=== PATIENT | female | born 1990 | race Caucasian/White ===

== ENCOUNTER 2019-08-01 19:22 | Emergency (ER) | payer OTHER, SELFPAY ==
[2019-08-01 19:30] VITALS: BP 142/92; PULSE 129; RESP 22; TEMP 38.2; O2SAT 100
--- NOTE | 2019-08-01 19:32 | ED.GENADULT ---
HPI - General Adult General Chief complaint: Urogenital-Female Stated complaint: cloudy Urine Time Seen by Provider: 08/01/19 19:41 Source: patient and RN notes reviewed Mode of arrival: ambulatory Limitations: no limitations History of Present Illness HPI narrative: This is a 28 years old female presents to the office for an evaluation of possible UTI. Onset 4-5days ago. Symptoms include back pain, urinary pain and fever. She took Tylenol for pain/fever prior to arrival. Admits to history of UTI many years ago with similar symptoms. Related Data Home Medications Medication Instructions Recorded Confirmed fluticasone propionate [Flonase 2 spray INTRANASAL DAILY 08/01/19 08/01/19 Allergy Relief] loratadine [Claritin] 10 mg PO DAILY 08/01/19 08/01/19 Allergies Allergy/AdvReac Type Severity Reaction Status Date / Time amoxicillin AdvReac Other Verified 08/01/19 19:43 Review of Systems Review of Systems: Narrative: CONSTITUTIONAL: Reports fever today ENT:Denies congestion CARDIOVASCULAR: Denies chest pain RESPIRATORY: Denies dyspnea, cough GASTROINTESTINAL: Denies abdominal pain, nausea, vomiting, diarrhea. GENITOURINARY: Reports urinary pain, and lower abdominal discomfort SKIN: Denies rash MUSCULOSKELETAL: Reports lower back pain NEUROLOGIC: Denies lightheaded PMFSH Comments At time of signature, I agree with nursing past medical, surgical, social and family history. There is no relevant family history pertinent to the presenting complaint. Exam Narrative: Exam Narrative: GENERAL: This is a well-nourished, well-developed patient, in no apparent distress. CARDIOVASCULAR: Regular rate and rhythm without murmurs, gallops, or rubs. RESPIRATORY: Clear to auscultation. Breath sounds equal bilaterally. No wheezes, rales, or rhonchi. GASTROINTESTINAL: Abdomen soft, suprapubic tenderness with palpation, nondistended. Bowel sounds are active. No hepato-splenomegaly, or palpable masses. No guarding. SKIN: warm, intact with no suspicious lesions or rash, good texture and turgor. NEURO: awake, alert, and oriented to person, place and time. There were no obvious focal neurologic abnormalities. Steady gait BACK: No CVS tenderness. Apoorva Coma Scale Eye Opening: Spontaneous 4 Onward Coma Scale Motor: Obeys Commands 6 Onward Coma Scale Verbal: Oriented 5 Course Vital Signs Vital signs: Vital Signs Temperature 100.8 F H 08/01/19 19:30 Pulse Rate 129 H 08/01/19 19:30 Respiratory Rate 22 H 08/01/19 19:30 Blood Pressure 142/92 H 08/01/19 19:30 Pulse Oximetry 100 08/01/19 19:30 Temperature 100.8 F H 08/01/19 19:30 Pulse Rate 129 H 08/01/19 19:30 Respiratory Rate 22 H 08/01/19 19:30 Blood Pressure 142/92 H 08/01/19 19:30 Pulse Oximetry 100 08/01/19 19:30 Medical Decision Making MDM Narrative Medical decision making narrative: The patient has been informed that they may have pre-hypertension or Hypertension based on a BP reading in the clinic. It is recommended that the patient call the primary care provider listed on their discharge instructions or a physician of their choice as soon as possible (within 1-2week) to arrange follow up for further evaluation of possible pre-hypertension or hypertension. Discharge instructions reviewed with patient, as well as provided in writing per nursing staff. The instructions also include specific and strict return/GO TO THE ER as well as f/u information. All questions have been answered, and the patient deny any further questions with discharge and discharge plan. Differential Diagnosis Differential Diagnosis: Cystitis, Nephrolithiasis, bacterial vaginosis, Nephritis, candidiasis, vaginitis, pyelonephritis Vital Signs Vital Signs: Vital Signs Temperature 100.8 F H 08/01/19 19:30 Pulse Rate 129 H 08/01/19 19:30 Respiratory Rate 22 H 08/01/19 19:30 Blood Pressure 142/92 H 08/01/19 19:30 Pulse Oximetry 100 08/01/19 19:30 Temp
== END 2019-08-01 19:49 | disposition home or self-care (01) ==
PROVIDERS: Emergency Provider Nurse Practitioner; PCP Family Medicine
DX: N30.01 Acute cystitis with hematuria (principal)
CPT/HCPCS: 81003; 87077; 87086; 87088; 87186; 99213; G0463

== ENCOUNTER 2020-10-22 16:40 | Emergency (ER) | payer OTHER, SELFPAY ==
--- NOTE | ~2020-10-22 | XR_ITS ---
EXAMINATION: XR ankle LT min 3V EXAM DATE: 10/22/2020 17:16 INDICATION: Stepdown wrong, left ankle pain laterally. Initial encounter. TECHNIQUE: Left ankle frontal, lateral and oblique projections obtained and reviewed. There is no pr ior study for comparison. FINDINGS: The left ankle mortise appears intact. Possible tiny sliver-like lateral malleolar avulsio n injury at its tip, would be treated as ankle sprain. There is swelling overlying the ankle anterola terally. There is large chronic appearing medial talar dome osteochondral defect. IMPRESSION: 1. Possible tiny acute lateral malleolar avulsion fracture. 2. Large chronic talar dome osteochondral defect. 3. Lateral soft tissue swelling. Reviewed, dictated and finalized at location A.
[2020-10-22 16:44] VITALS: BP 135/78; PULSE 106; RESP 14; TEMP 36.9; O2SAT 99
--- NOTE | 2020-10-22 17:44 | ED.LOWEXIN ---
HPI - Extremity Injury (Lower) General Chief Complaint: Extremity Injury, Lower Stated Complaint: left ankle injury Source: patient Mode of arrival: ambulatory Limitations: no limitations History of Present Illness HPI Narrative: Patient is a 30-year-old female who presents complaining of left ankle pain. Patient reports injuring her ankle while zip lining this afternoon. Swelling noted to the left lateral ankle. Patient reports using an Garrett wrap with little relief. She denies other injuries. She denies significant medical history at this time. MD complaint: ankle injury Related Data Home Medications Medication Instructions Recorded Confirmed levonorgestrel-ethinyl estrad 1 tablet PO DAILY 10/22/20 10/22/20 [Lutera (28)] Allergies Allergy/AdvReac Type Severity Reaction Status Date / Time No Known Allergies Allergy Verified 10/22/20 17:03 Review of Systems Review of Systems: Narrative: CONSTITUTIONAL: Denies fever, chills, or sweats. EYES: Denies visual changes, redness, or discharge. ENT: Denies rhinorrhea, congestion, sore throat, or otalgia. CARDIOVASCULAR: Denies chest pain, palpitations, or edema. RESPIRATORY: Denies cough or dyspnea. GASTROINTESTINAL: Denies abdominal pain, nausea, vomiting, or diarrhea. GENITOURINARY: Denies dysuria or hematuria. SKIN: Denies rash or itching. MUSCULOSKELETAL: Left ankle pain and swelling NEUROLOGIC: Denies headache, numbness, dizziness, or weakness. PSYCHIATRIC: Denies anxiety or depression. [facility] Social History Social History (Updated 10/22/20 @ 17:46 by KADIE Kaminski) Smoking status: Never smoker Alcohol intake: current Alcohol use details: Occasional Substance use: never Living arrangements: with family Comments At the time of signature, I have reviewed and agree with nursing past medical, surgical, social, and family history unless otherwise noted. Please see nursing chart for further information. There is no relevant family history pertinent to the presenting complaint. Exam Narrative: Exam Narrative: GENERAL: Well-appearing, well-nourished, and in no acute distress. HEAD: Normocephalic, atraumatic. EYES: EOMI. No redness or drainage. Conjunctiva are normal. ENT: Mucous membranes pink and moist. CHEST: No respiratory distress. Clear to auscultation. HEART: Regular rate and rhythm. EXTREMITIES: Normal range of motion. Tenderness with palpation to left lateral ankle, edema noted. SKIN: Warm, dry, no rash. NEURO: No focal deficits. Alert and oriented x3. PSYCH: Normal affect. No signs of depression or anxiety. Course Vital Signs Vital signs: Vital Signs Temperature 36.9 C 10/22/20 16:44 Pulse Rate 106 H 10/22/20 16:44 Respiratory Rate 14 10/22/20 16:44 Blood Pressure 135/78 10/22/20 16:44 Pulse Oximetry 99 10/22/20 16:44 Temperature 36.9 C 10/22/20 16:44 Pulse Rate 106 H 10/22/20 16:44 Respiratory Rate 14 10/22/20 16:44 Blood Pressure 135/78 10/22/20 16:44 Pulse Oximetry 99 10/22/20 16:44 Reviewed-patient is informed that they may have pre-hypertension or hypertension based on a blood pressure reading. I recommend the patient call the primary care provider listed on their discharge instructions or a physician of their choice this week to arrange follow-up for further evaluation of possible pre-hypertension or hypertension. MDM - Extremity Injury (Lower) MDM Narrative Medical decision making narrative: Patient has small avulsion fracture noted to ankle per radiology report. Discussed with patient use of Garrett wrap and crutches. Patient agrees with plan of care. Patient given follow-up referral to Ortho at this time. Patient is stable for discharge home with outpatient follow-up as discussed. Differential Diagnosis Differential diagnosis: Likely ankle sprain and strain, ankle fracture and other (Sprain, strain, contusion) Imaging Data Radiologist's impression: ITS Impressions Ankle X-R
== END 2020-10-22 18:02 | disposition home or self-care (01) ==
PROVIDERS: Emergency Provider Nurse Practitioner
DX: S93.402A Sprain of unspecified ligament of left ankle, initial encounter (principal); S96.912A Strain of unspecified muscle and tendon at ankle and foot level, left foot, initial encounter; S82.892A Other fracture of left lower leg, initial encounter for closed fracture; X58.XXXA Exposure to other specified factors, initial encounter
CPT/HCPCS: 73610; 99214; G0463

== ENCOUNTER 2022-02-17 14:19 | Emergency (ER) | payer OTHER, SELFPAY ==
[2022-02-17 15:45] VITALS: BP 140/93; PULSE 102; RESP 16; TEMP 36.7; O2SAT 98
--- NOTE | 2022-02-17 17:23 | ED.FEMALEGU ---
HPI - Female Genitourinary General Chief complaint: Urogenital-Female Stated complaint: Urinary Problem Time Seen by Provider: 02/17/22 16:50 Source: patient, RN notes reviewed and old records reviewed Mode of arrival: ambulatory Limitations: no limitations History of Present Illness HPI Narrative: 31-year-old female who presents to [facility] with complaints of frequency of urination with burning, urgency, foul smelling urine, and low back pain which started yesterday. Patient reports that she has no vaginal discharge or any itching, denies any concern for STD's. Patient reports that she has not noted any fevers, suprapubic pain or any CVA tenderness. Patient has not taken any AZO for hr symptoms MD elicited complaint: UTI Pertinent past history: other (past UTI) Onset (ago): day(s) (1) Severity scale (1-10): 5 Related Data Home Medications Medication Instructions Recorded Confirmed levonorgestrel-ethinyl estradiol 1 tablet PO DAILY 10/22/20 02/17/22 0.1 mg-20 mcg tablet (Lutera (28)) Allergies Allergy/AdvReac Type Severity Reaction Status Date / Time No Known Allergies Allergy Verified 02/17/22 17:27 Review of Systems Review of Systems: CONSTITUTIONAL: Denies fever, chills, or sweats. CARDIOVASCULAR: Denies chest pain, palpitations, or edema. RESPIRATORY: Denies cough or dyspnea. GASTROINTESTINAL: Denies abdominal pain, nausea, vomiting, or diarrhea. GENITOURINARY: Reports dysuria, frequency, urgency. Denies flank pain or hematuria. SKIN: Denies rash or itching. MUSCULOSKELETAL: reports low back pain or myalgia. Denies CVA tenderness NEUROLOGIC: Denies headache All systems reviewed & are unremarkable except as noted in HPI and below [facility] Past Medical History Medical History (Updated 02/24/22 @ 09:37 by Marisela Cooley NP) COVID-19 Fracture of right elbow Moderate left ankle sprain Osteochondral defect of talus Surgical History Surgical History (Updated 02/24/22 @ 09:30 by Marisela Cooley NP) Previous section Social History Social History (Updated 02/24/22 @ 09:31 by Marisela Cooley NP) Smoking status: Never smoker Alcohol intake: current Alcohol use details: Occasional Substance use: never Living arrangements: with family Gender identity (if verbalized by the patient): Female Comments At time of signature, agree with nursing past medical, surgical, social and family history. There is no relevant family history pertinent to the presenting complaint Exam Narrative: GENERAL: Well-appearing, well-nourished, and in no acute distress. HEAD: Normocephalic, atraumatic. NECK: Supple.no lymphadenopathy CHEST: Clear to auscultation. No respiratory distress.SAO2 98% on room air HEART: Regular rate and rhythm. No murmur heard. Normal peripheral pulses. ABDOMEN: Soft, nontender, nondistended, normal active bowel sounds. No CVA tenderness urinary frequency. low back pain with urinary urgency, burning EXTREMITIES: Normal range of motion. No edema. SKIN: Warm, dry, no rash. NEURO: No focal deficits. Alert and oriented x3. Course Course Emergency Course: Patient is aware of diagnosis, understands and agrees to treatment plan.? Anticipatory guidance given.? Patient agrees to follow-up as directed and is aware of reasons to seek care at the emergency department. Portions of this record may have been created with voice recognition software Level of Care: Express Care Visit Vital Signs Vital signs: Vital Signs Temperature 36.7 C 02/17/22 15:45 Pulse Rate 102 H 02/17/22 15:45 Respiratory Rate 16 02/17/22 15:45 Blood Pressure 140/93 H 02/17/22 15:45 Pulse Oximetry 98 02/17/22 15:45 Oxygen Delivery Room Air 02/17/22 15:45 Temperature 36.7 C 02/17/22 15:45 Pulse Rate 102 H 02/17/22 15:45 Respiratory Rate 16 02/17/22 15:45 Blood Pressure 140/93 H 02/17/22 15:45 Pulse Oximetry 98 02/17/22 15:45 Oxygen Delivery Room Air 02/17/22 15
== END 2022-02-17 17:40 | disposition home or self-care (01) ==
PROVIDERS: Emergency Provider Registered Nurse
DX: N39.0 Urinary tract infection, site not specified (principal)
CPT/HCPCS: 81003; 87077; 87086; 87186; 99213; G0463

== ENCOUNTER 2022-03-22 16:43 | Emergency (ER) | payer OTHER, SELFPAY ==
[2022-03-22 16:51] VITALS: BP 156/97; PULSE 115; RESP 18; TEMP 36.9; O2SAT 100
--- NOTE | 2022-03-22 16:54 | ED.SKABFB ---
HPI - Skin/Abscess/Foreign Bdy General Chief complaint: Skin/Abscess/Foreign Body Stated complaint: Skin Sore Time Seen by Provider: 03/22/22 16:54 Source: patient and RN notes reviewed History of Present Illness HPI narrative: patient is a 31-year-old female who presents to urgent care with complaints of a skin sore to the right buttocks. Patient states that she noticed it yesterday and she has been using ibuprofen and warm compress to the area. Denies any fever, nausea, vomiting. No other acute complaints. No acute distress noted. Patient aware of the plan of care. Some parts of this dictation were generated by voice recognition software and may contain typographical and/or grammatical inaccuracies. Related Data Home Medications Medication Instructions Recorded Confirmed norgestimate 0.25 mg-ethinyl 1 tablet PO DAILY 03/22/22 03/22/22 estradiol 35 mcg tablet (Estarylla) Allergies Allergy/AdvReac Type Severity Reaction Status Date / Time No Known Allergies Allergy Verified 03/22/22 17:04 Review of Systems Review of Systems: CONSTITUTIONAL: Denies fever, chills, or sweats. EYES: Denies visual changes, redness, or discharge. ENT: Denies rhinorrhea, congestion, sore throat, or otalgia. CARDIOVASCULAR: Denies chest pain, palpitations, or edema. RESPIRATORY: Denies cough or dyspnea. GASTROINTESTINAL: Denies abdominal pain, nausea, vomiting, or diarrhea. GENITOURINARY: Denies dysuria or hematuria. SKIN: reports of an abscess to the right buttock MUSCULOSKELETAL: Denies back pain, joint pain, or myalgia. NEUROLOGIC: Denies headache, numbness, or weakness. All other systems reviewed are negative, except as documented in HPI. [facility] Past Medical History Medical History (Updated 03/22/22 @ 17:32 by KADIE Douglas) COVID-19 Fracture of right elbow Moderate left ankle sprain Osteochondral defect of talus Surgical History Surgical History (Updated 02/24/22 @ 09:30 by Marisela Cooley NP) Previous section Social History Social History (Updated 02/24/22 @ 09:31 by Marisela Cooley NP) Smoking status: Never smoker Alcohol intake: current Alcohol use details: Occasional Substance use: never Gender identity (if verbalized by the patient): Female Comments At the time of my signature, I reviewed and agree with the nursing past medical, surgical, social, and family history. There is no relevant family history pertinent to the patient complaint. Exam Narrative: GENERAL: This is a well-nourished, well-developed patient, in no apparent distress. HEAD: normocephalic, atraumatic. EYES: PERRL. Sclera clear/white. Vision is grossly intact. EARS: External ears normal NOSE: External nose normal with no obvious nasal discharge, nares without redness, no rhinorrhea. THROAT: Mucous membranes moist NECK: Neck supple SKIN: 3.5 cm erythemic firm tender abscess with surrounding 7 cm erythema to the right buttocks. NEURO: awake, alert, and oriented to person, place and time. There were no obvious focal neurologic abnormalities. EXTREMITIES: No clubbing, cyanosis, or edema. Course Course Level of Care: Express Care Visit Vital Signs Vital signs: Vital Signs Temperature 98.5 F 03/22/22 16:51 Pulse Rate 115 H 03/22/22 16:51 Respiratory Rate 18 03/22/22 16:51 Blood Pressure 156/97 H 03/22/22 16:51 Pulse Oximetry 100 03/22/22 16:51 Oxygen Delivery Room Air 03/22/22 16:51 Temperature 98.5 F 03/22/22 16:51 Pulse Rate 115 H 03/22/22 16:51 Respiratory Rate 18 03/22/22 16:51 Blood Pressure 156/97 H 03/22/22 16:51 Pulse Oximetry 100 03/22/22 16:51 Oxygen Delivery Room Air 03/22/22 16:51 reviewed- Patient is informed that they may have pre-hypertension or hypertension based on a blood pressure reading in the department. I recommend the patient call the primary care provider listed on their discharge instructions or a physician of their choice
== END 2022-03-22 17:35 | disposition home or self-care (01) ==
PROVIDERS: Emergency Provider Nurse Practitioner Family
DX: L02.31 Cutaneous abscess of buttock (principal)
CPT/HCPCS: 10060; 99213; G0463

== ENCOUNTER 2022-04-25 08:02 | Emergency (ER) | payer OTHER, SELFPAY ==
[2022-04-25 08:12] VITALS: BP 132/80; PULSE 108; RESP 20; TEMP 36.3; O2SAT 99
--- NOTE | 2022-04-25 08:13 | ED.URI ---
HPI - URI/Sore Throat General Chief Complaint: Upper Respiratory Infection Stated Complaint: cold flu Time Seen by Provider: 04/25/22 08:10 Source: patient and RN notes reviewed History of Present Illness HPI Narrative: patient is a 31-year-old female presents to urgent care with complaints of sore throat since Saturday and fever, chills and bilateral ear pain since yesterday. Patient states her fever got up to 100.8. She has been taking DayQuil, NyQuil and using ibuprofen. States her is also not been feeling well however did go to work today. Patient does work at the [employer]. No other acute complaints. No acute distress noted. Patient aware of the plan of care. Some parts of this dictation were generated by voice recognition software and may contain typographical and/or grammatical inaccuracies. Related Data Home Medications Medication Instructions Recorded Confirmed norgestimate 0.25 mg-ethinyl 1 tablet PO DAILY 03/22/22 04/25/22 estradiol 35 mcg tablet (Estarylla) Allergies Allergy/AdvReac Type Severity Reaction Status Date / Time No Known Allergies Allergy Verified 04/25/22 08:15 Review of Systems Review of Systems: CONSTITUTIONAL: reports fever and chills EYES: Denies visual changes, redness, or discharge. ENT: Reports of sore throat, bilateral ear pain CARDIOVASCULAR: Denies chest pain, palpitations, or edema. RESPIRATORY: Denies cough or dyspnea. GASTROINTESTINAL: Denies abdominal pain, nausea, vomiting, or diarrhea. GENITOURINARY: Denies dysuria or hematuria. SKIN: Denies rash or itching. MUSCULOSKELETAL: Denies back pain, joint pain, or myalgia. NEUROLOGIC: Denies headache, numbness, or weakness. All other systems reviewed are negative, except as documented in HPI. [facility] Past Medical History Medical History (Updated 04/25/22 @ 08:35 by KADIE Douglas) COVID-19 Fracture of right elbow Moderate left ankle sprain Osteochondral defect of talus Surgical History Surgical History (Updated 02/24/22 @ 09:30 by Marisela Cooley NP) Previous section Social History Social History (Updated 02/24/22 @ 09:31 by Marisela Cooley NP) Smoking status: Never smoker Alcohol intake: current Alcohol use details: Occasional Substance use: never Gender identity (if verbalized by the patient): Female Comments At the time of my signature, I reviewed and agree with the nursing past medical, surgical, social, and family history. There is no relevant family history pertinent to the patient complaint. Exam Narrative: GENERAL: This is a well-nourished, well-developed patient, in no apparent distress. HEAD: normocephalic, atraumatic. EYES: PERRL. Sclera clear/white. Vision is grossly intact. EARS: External ears normal, auditory canals clear and without drainage, mild eustachian tube dysfunction.TMs normal without perforation. Hearing grossly intact. NOSE: External nose normal with no obvious nasal discharge, nares without redness, Clear rhinorrhea. THROAT: Mucous membranes moist. moderate erythema posterior oropharynx with postnasal drainage NECK: Neck supple, non-tender without lymphadenopathy, masses or thyromegaly. CARDIOVASCULAR: Regular rate and rhythm without murmurs, gallops, or rubs. RESPIRATORY: Clear to auscultation. Breath sounds equal bilaterally. No wheezes, rales, or rhonchi. SKIN: warm, intact with no suspicious lesions or rash, good texture and turgor. NEURO: awake, alert, and oriented to person, place and time. There were no obvious focal neurologic abnormalities. EXTREMITIES: No clubbing, cyanosis, or edema. Course Course Level of Care: Express Care Visit Vital Signs Vital signs: Vital Signs Temperature 97.4 F L 04/25/22 08:12 Pulse Rate 108 H 04/25/22 08:12 Respiratory Rate 20 04/25/22 08:12 Blood Pressure 132/80 04/25/22 08:12 Pulse Oximetry 99 04/25/22 08:12 Oxygen Delivery Room Air 04/25/22 08:12
[2022-04-25 08:16] VITALS: BP 132/80; PULSE 108; RESP 20; TEMP 36.3; O2SAT 99
== END 2022-04-25 08:38 | disposition home or self-care (01) ==
PROVIDERS: Emergency Provider Nurse Practitioner Family
DX: J02.0 Streptococcal pharyngitis (principal); Z86.16 Personal history of COVID-19
CPT/HCPCS: 87804; 87880; 99213; G0463